=== PATIENT | female | born 1950 | race Two or more races ===

== ENCOUNTER 2025-07-14 13:11 | Outpatient (RCR) | payer MEDICAID, SELFPAY | END 2025-08-10 23:59 | disposition home or self-care (01) | LOC: SCTC 13:11 | PROVIDERS: PCP Student in an Organized Health Care Education/Training Program; Referring Provider Student in an Organized Health Care Education/Training Program; Visit Provider Nurse Practitioner Family | DX: Z76.89 Persons encountering health services in other specified circumstances (principal); Z86.718 Personal history of other venous thrombosis and embolism | CPT/HCPCS: 99213; G0463 ==